=== PATIENT | female | born 1985 | race Two or more races ===

== ENCOUNTER 2017-04-26 02:04 | Emergency (ER) | payer OTHER ==
[~2017-04-26] VITALS: Ht 170.2 cm; Wt 113.4 kg
[~2017-04-26 02:04] MED LIST: GABA600T PO; METH10TA4 PO; PERCOT PO; ZOLP10TA PO
[2017-04-26] MEDS ORDERED: SODIUM CHLORIDE 0.9% 1,000 ML IV ONE (03:00)
[2017-04-26 06:10] LABS: Basophils # (auto) 0 uL; Basophils % (auto) 0.6 % (0.0-2.0); Eosinophils # (auto) 0.1 uL; Eosinophils % (auto) 1.4 % (0.0-7.0); Hematocrit 33.8 % (36.0-46.0); Lymphocytes # (auto) 3.1 uL; Lymphocytes % (auto) 39.3 % (10.0-50.0); Mean Corpuscular Hemoglobin 29.6 pg (28.0-32.0); Mean Corpuscular Hgb Conc. 32.5 g/dL (32.0-36.0); Mean Corpuscular Volume 91.2 fL (80.0-100.0); Monocytes # (auto) 0.9 uL; Monocytes % (auto) 11.1 % (0.0-12.0); Neutrophils # (auto) 3.7 uL; Neutrophils % (auto) 47.6 % (37.0-80.0); Nucleated Red Blood Cells % 0.1 %; Platelet Count (auto) 213 10^3/uL (140-450); Red Cell Distribution Width 15.9 % (11.8-14.3); White Blood Cell 7.8 10^3/uL (4.4-10.8)
[2017-04-26 06:34] LABS: Albumin 3.4 g/dL (3.4-5.0); BUN/Creatinine Ratio 19.2; Calcium 8.5 mg/dL (8.5-10.1); Potassium 3.9 mmol/L (3.5-5.1)
[2017-04-26 06:37] LABS: Bilirubin, Total 0.4 mg/dL (0.2-1.0); Total Protein 7.1 g/dL (6.4-8.2)
[2017-04-26] MEDS ORDERED: HYDROmorphone HCL 2 MG/ML VL IV ONE (08:00)
[2017-04-26] MEDS ORDERED: ONDANSETRON HCL 4 MG/2 ML VIAL IV ONE (08:00)
[2017-04-26 08:14] VITALS: BP 120/59
[2017-04-26 08:23] LABS: Urine Bacteria FEW /hpf (None Seen); Urine Blood 3+ /uL (Negative); Urine Specific Gravity 1.015 (1.001-1.035); Urine WBC 65 /hpf (0 - 5)
[2017-04-26 08:34] LABS: Alcohol, Urine < 3.0 mg/dL (0-5); Amphetamine Screen, Urine NEGATIVE (NEGATIVE); Barbiturate Scree,Urine NEGATIVE (NEGATIVE); Benzodiazephine Screen, Urine NEGATIVE (NEGATIVE); Cannabinoid Screen, Urine NEGATIVE (NEGATIVE); Cocaine Screen, Urine NEGATIVE (NEGATIVE); Opiate Scree,Urine NEGATIVE (NEGATIVE); Phencyclidine Screen, Urine NEGATIVE (NEGATIVE)
== END 2017-04-26 09:20 | disposition home or self-care (01) ==
LOC: EDBD 02:04 → ER 02:12
DX: N39.0 Urinary tract infection, site not specified (principal); R55 Syncope and collapse; Z88.0 Allergy status to penicillin; Z79.899 Other long term (current) drug therapy
CPT/HCPCS: 36415; 74176; 80053; 80307; 81001; 82150; 83690; 85025; 93005; 96361; 96374; 96375; 99285; J1170; J2405; J7030